=== PATIENT | female | born 2000 | race Caucasian/White ===

== ENCOUNTER 2021-05-30 15:56 | Emergency (ER) | payer MEDICAID ==
--- NOTE | 2021-05-30 16:51 | ED Physician Documentation ---
History of Present Illness - Stated complaint Stated Complaint: ALLERGIC REACTON - Chief complaint Chief Complaint: Allergic Rx - History obtained from History obtained from: Patient, Family - History of Present Illness Timing: Today Pain level max: 0 Pain level now: 0 - Additonal information Additional information: Patient is a 20-year-old female, 40 weeks who is accompanied by her today. She states that she ate food earlier today and had numbness and tingling in her left hand and arm. This is similar to prior allergic reactions. She gave herself an EpiPen Teodoro injection and symptoms resolved. She states that she ate a granola bar this afternoon and had tingling in her left hand. She took Benadryl and symptoms resolved. She is currently asymptomatic, but wanted to be evaluated as she is . No difficulty breathing, speaking or swallowing. No rash. Nothing makes that worse. Better with Benadryl and epinephrine. Review of Systems Ten Systems: 10 systems reviewed and negative Constitutional: denies: Fever, Chills Respiratory: denies: Dyspnea, Cough, Wheezing GI: denies: Nausea, Vomiting, Diarrhea : denies: Now EGA Skin: denies: Rash Musculoskeletal: denies: Neck pain, Back pain Neurologic: denies: Headache PD PAST MEDICAL HISTORY - Past Medical History Past Medical History: No - Past Surgical History Past Surgical History: No - Present Medications Home Medications: Ambulatory Orders Medication Instructions Recorded Confirmed Pnv No.95/Ferrous Fum/Folic AC 1 each PO DAILY 05/30/21 05/30/21 [ Tablet] - Allergies Allergies/Adverse Reactions: Allergies Allergy/AdvReac Type Severity Reaction Status Date / Time tobin flavor Allergy Edema Verified 05/30/21 16:26 PD ED PE NORMAL - Vitals Vital signs reviewed: Yes - General General: Alert and oriented X 3, No acute distress - HEENT HEENT: Moist mucous membranes - Neck Neck: Supple, no meningeal sign - Cardiac Cardiac: RRR, Strong equal pulses - Respiratory Respiratory: No respiratory distress, Clear bilaterally - Abdomen Abdomen: Soft, Non tender, Non distended - Derm Derm: Warm and dry, No rash - Extremities Extremities: No edema, No calf tenderness / cord - Neuro Neuro: Alert and oriented X 3 Results - Vitals Vitals: Vital Signs - 24 hr 05/30/21 05/30/21 16:18 17:36 Temperature 36.2 C L 36.4 C L Heart Rate 84 70 Respiratory 20 18 Rate Blood Pressure 131/85 H 121/67 O2 Saturation 99 100 Oxygen O2 Source Room air PD MEDICAL DECISION MAKING - ED course Complexity details: considered differential, d/w patient, d/w family, d/w hospice care sales consultant ED course: Patient with what appears to be her typical allergic reaction symptoms earlier today. Asymptomatic here. Discussed the case with Dr. Pruitt, OB on-call who recommends that the patient follow-up with her OB. Patient is following [facility]. Patient had a normal NST this morning. Patient does not want a repeat NST at this time. She is feeling the baby moving normally. Patient and family counseled regarding signs and symptoms for which I believe and urgent re- evaluation would be necessary. Patient with good understanding of and agreement to plan and is comfortable going home at this time This document was made in part using voice recognition software. While efforts are made to proofread this document, sound alike and grammatical errors may occur. Departure - Departure Disposition: 01 Home, Self Care Clinical Impression: Allergic reaction Qualifiers: Encounter type: initial encounter Qualified Code(s): T78.40XA - Allergy, unspecified, initial encounter Condition: Good Instructions: ED Drug React Allergic Follow-Up: your,doctor in 1 week [Other] Comments: You can use Benadryl as needed for any allergy symptoms. Follow-up with your OB for further care. Return if you worsen. Discharge Date/Time: 05/30/21 17:46
[2021-05-30 17:36] VITALS: BP 121/67
== END 2021-05-30 17:46 | disposition home or self-care (01) ==
LOC: ED 15:56
DX: O99.891 Other specified diseases and conditions complicating pregnancy (principal); T78.1XXA Other adverse food reactions, not elsewhere classified, initial encounter; R20.0 Anesthesia of skin; R20.2 Paresthesia of skin; X58.XXXA Exposure to other specified factors, initial encounter; Z3A.40 40 weeks gestation of pregnancy
CPT/HCPCS: 99281; 99284